=== PATIENT | female | born 1935 | race Caucasian/White ===

== ENCOUNTER 2023-01-13 19:04 | Emergency (ER) | payer MEDICARE, OTHER ==
[2023-01-13] MEDS ORDERED: LORazepam 2 MG/ML SDV IM ONE (20:10)
[2023-01-13] MEDS ORDERED: Haloperidol Lactate 5 MG/ML SDV IM ONE (20:39)
[2023-01-13 21:46] LABS: BASOPHILS PERCENT AUTO 0.3 % (0.0-1.0); HEMATOCRIT 41.4 % (37.0-47.0); HEMOGLOBIN 13.9 g/dL (12.0-16.0); LYMPHOCYTES PERCENT AUTO 11.8 % (20.5-50.1); MEAN CORPUSCULAR HEMOGLOBIN 32.5 pg (27.0-34.0); MEAN CORPUSCULAR HGB CONC 33.6 g/dL (33.0-35.0); MEAN CORPUSCULAR VOLUME 96.7 fL (80-100); MONOCYTES PERCENT AUTO 7.4 % (2-8); NEUTROPHILS PERCENT AUTO 79.5 % (42.2-75.2); PLATELET COUNT,PLT 166 10^3/uL (150-450); RED BLOOD CELL COUNT 4.28 10^6/uL (4.2-5.4)
[2023-01-13 22:04] LABS: ALANINE AMINOTRANSFERASE,ALT 13 U/L (14-59); ALBUMIN 3.3 g/dL (3.4-5.0); ALKALINE PHOSPHATASE 95 U/L (46-116); ANION GAP 12.2 mEq/L (7-13); ASPARTATE AMNIOTRANSFERASE,AST 15 U/L (15-37); BILIRUBIN TOTAL 0.4 mg/dL (0.2-1.0); BLOOD UREA NITROGEN,BUN 12 mg/dL (7-18); BUN/CREATININE RATIO 14.3 (No establ ref range); CALCIUM 8.9 mg/dL (8.5-10.1); CARBON DIOXIDE,CO2 27 mmol/L (21-32); CHLORIDE,CL 103 mmol/L (98-107); CREATININE 0.84 mg/dL (0.55-1.02); EST CRCL DRUG DOSING (CG) 45.88 mL/min; GLUCOSE RANDOM 107 mg/dL (70-99); MAGNESIUM 1.9 mg/dL (1.8-2.4); POTASSIUM,K 3.2 mmol/L (3.5-5.1); PROTEIN TOTAL,TP 6.5 g/dL (6.4-8.2); SODIUM,NA 139 mmol/L (136-145)
[2023-01-13 22:06] LABS: A/G RATIO 1.03; ESTIMATED GFR 67 mL/min (>=60)
[2023-01-13 22:07] LABS: B-TYPE NATRIURETIC PEPTIDE,BNP 101 pg/ml (0-100); C-REACTIVE PROTEIN < 0.2 mg/dL (0.0-0.9); ETHANOL BLOOD MEDICAL < 3 mg/dL (0); LACTIC ACID 1.4 mmol/L (0.4-2.0)
[2023-01-13 22:30] LABS: INR 0.9 (0.9-1.2); PROTHROMBIN TIME 9.3 SEC (9.0-12.0); PTT,PARTIAL THROMBOPLSTIN TIME 23.7 SEC (22.0-34.0)
== END 2023-01-13 23:12 | disposition home or self-care (01) ==
LOC: DL.ED 19:04
DX: R41.0 Disorientation, unspecified (principal); R46.89 Other symptoms and signs involving appearance and behavior; Z91.040 Latex allergy status; Z88.8 Allergy status to other drugs, medicaments and biological substances
CPT/HCPCS: 36415; 70450; 80053; 80307; 83605; 83735; 83880; 84484; 85025; 85610; 85730; 86140; 96372; 99284; 99285; J1630; J2060